=== PATIENT | male | born 1970 | race Asian ===

== ENCOUNTER 2019-03-12 13:14 | Emergency (ER) | payer MEDICAID ==
[~2019-03-12] VITALS: Ht 182.9 cm; Wt 81.2 kg
[2019-03-12 13:15] VITALS: Ht 182.9 cm; Wt 81.2 kg
[2019-03-12 14:45] LABS: BASOPHIL % 0.2 % (0-2); PLATELET COUNT 319 x10^3mcL (130-400); RED CELL DISTRIBUTION WIDTH 13.4 % (11.5-14.5)
[2019-03-12 14:58] LABS: CALCIUM 8.7 mg/dL (8.5-10.1); CARBON DIOXIDE 28.1 mmol/L (21-32); CHLORIDE SERUM 103 mmol/L (98-107); CREATININE SERUM 0.7 mg/dL (0.7-1.3); GFR1 > 60 mL/min; GLUCOSE SERUM 103 mg/dL (74-106); POTASSIUM SERUM 4.7 mmol/L (3.5-5.1); SODIUM SERUM 139 mmol/L (136-145)
[2019-03-12 15:10] LABS: ALBUMIN 3.9 g/dL (3.4-5.0); ALKALINE PHOSPHATASE 71 U/L (46-116); ALT/SGPT 32 U/L (16-63); AST/SGOT 31 U/L (15-37); BILIRUBIN TOTAL 0.2 mg/dL (0.20-1.00); CHOLESTEROL 167 mg/dL (<200); LIPASE 141 IU/L (73-393); T4(THYROXINE) 7.2 ug/dL (4.7-13.3); TOTAL PROTEIN, SERUM 7.2 g/dL (6.4-8.2)
[2019-03-12 15:14] LABS: HDL CHOLESTEROL 61 mg/dL (40-60)
[2019-03-12 15:15] LABS: microscopic required? YES; urine erythrocyte TRACE (NEGATIVE)
[2019-03-12 15:37] LABS: AMPHETAMINE QUAL UR NONE DETECTED (See below)
[2019-03-12 17:00] VITALS: BP 132/77
== END 2019-03-12 17:27 | disposition left against medical advice (07) ==
LOC: ED 13:14
PROVIDERS: Emergency Medicine
DX: I21.4 Non-ST elevation (NSTEMI) myocardial infarction (principal); F43.10 Post-traumatic stress disorder, unspecified; F17.210 Nicotine dependence, cigarettes, uncomplicated; F12.90 Cannabis use, unspecified, uncomplicated; Z98.890 Other specified postprocedural states
CPT/HCPCS: 36415; 83880; 99406; Q0092